=== PATIENT | male | born 1980 | race Hispanic/Latino ===

== ENCOUNTER 2024-06-07 23:21 | Emergency (ER) | payer OTHER ==
[~2024-06-07] VITALS: Ht 180.3 cm; Wt 90.3 kg
[2024-06-07] MEDS: ketOROlac 15MG/ML VIAL (15MG/ML) IM STA (23:48)
[2024-06-07] MEDS: methoCARBamol 500 MG TABLET PO STA (23:48)
[2024-06-08] MEDS ORDERED: METH-662 PO (00:38)
[2024-06-08 00:51] VITALS: BP 124/76; PULSE 82; RESP 20; TEMP 98.3; O2SAT 97
== END 2024-06-08 00:48 | disposition home or self-care (01) ==
LOC: EDH 23:21
DX: S16.1XXA Strain of muscle, fascia and tendon at neck level, initial encounter (principal); M54.50 Low back pain, unspecified; V89.2XXA Person injured in unspecified motor-vehicle accident, traffic, initial encounter; Y93.I9 Activity, other involving external motion; Y92.488 Other paved roadways as the place of occurrence of the external cause; Y99.8 Other external cause status
CPT/HCPCS: 99284; 96372; 72040; 72100; J1885